=== PATIENT | female | born 1985 | race Caucasian/White ===

== ENCOUNTER 2016-11-06 21:02 | Emergency (ER) | payer BC ==
[~2016-11-06] VITALS: Ht 160 cm; Wt 62.5 kg
[~2016-11-06 21:02] MED LIST: OMEP20CA16 PO
[2016-11-06 21:17] VITALS: Ht 160 cm; Wt 62.5 kg
[2016-11-06] MEDS ORDERED: AMO500 PO (21:30)
[2016-11-06] MEDS ORDERED: CIPR7.5D4 BOTH EARS (21:30)
[2016-11-06] MEDS ORDERED: IBUP-1542 PO (21:31)
--- NOTE | 2016-11-06 21:42 | ERD ---
ER Documentation Chief Complaint Date/Time DATE: 11/06/16 TIME: 21:38 Chief Complaint Pt with L ear pain X 2 weeks, white discharge per pt. HPI Patient is a 31-year-old female who presents with left ear pain 2 weeks. Patient states that she has white discharge coming from her ear. Patient denies any active bleeding. Patient states that she was prescribed Cipro Dex eardrops from her primary care physician 3 days ago. Patient has been using this medication with no relief of symptoms. She denies any Q-tip use. Patient denies any water activities. Patient denies any fevers, chills, nausea, vomiting, cough, rhinorrhea, abdominal pain, loss of consciousness. Patient denies any sick contacts. No recent travel. ROS All systems reviewed and are negative except as per history of present illness. Medications Home Meds Active Scripts Ibuprofen* (Motrin*) 600 Mg Tab, 600 MG PO Q6, #30 TAB Prov:KEARA HOLMAN PA-C 11/06/16 Amoxicillin* (Amoxicillin*) 500 Mg Cap, 500 MG PO BID for 10 Days, CAP Prov:KEARA HOLMAN PA-C 11/06/16 Ciprofloxacin Hcl/Dexameth (Ciprodex Otic Suspension) 7.5 Ml Drops.susp, 4 DROP BOTH EARS BID for 7 Days, EA Prov:KEARA HOLMAN PA-C 11/06/16 Reported Medications Omeprazole* (Omeprazole*) 20 Mg Capsule.dr, 20 MG PO DAILY, #30 CAP 11/26/15 Allergies Allergies: Coded Allergies: No Known Drug Allergy (Verified Allergy, Unknown, 11/26/15) PMhx/Soc History of Surgery: Yes (erika kathleen 2013) Anesthesia Reaction: No Hx Neurological Disorder: No Hx Respiratory Disorders: No Hx Cardiac Disorders: No Hx Psychiatric Problems: No Hx Miscellaneous Medical Probl: No Hx Alcohol Use: No Hx Substance Use: No Hx Tobacco Use: No FmHx Family History: No diabetes Physical Exam Vitals Vital Signs Date Time Temp Pulse Resp B/P Pulse Ox O2 Delivery O2 Flow Rate FiO2 11/06/16 21:17 98.0 62 18 144/78 100 Physical Exam GENERAL: Well-developed, well-nourished female. Appears in no acute distress. HEAD: Normocephalic, atraumatic. No deformities or ecchymosis. EYE: Pupils equal, round, and reactive to light. EOMs intact. No conjunctival erythema. No eye discharge. ENT: External ear without any masses or tenderness. Left auditory canal swollen , difficulty with visualizing tympanic membrane. Right auditory canal non- erythematous. TM appears normal. Nasal mucosa pink with no discharge. Oropharynx is pink without any tonsillar erythema or exudates. No uvula deviation. No kissing tonsils. Tender to palpation of bilateral mastoid processes. No trismus. NECK: Supple. No meningismus. Normal ROM of the neck. LUNG: Clear to auscultation bilaterally. No rhonchi, wheezing, rales or coarse breath sounds. HEART: Regular rate and rhythm. No murmurs, rubs or gallops. BACK: No midline tenderness. EXTREMITES: Equal pulses bilaterally. No peripheral clubbing, cyanosis or edema. No unilateral leg swelling. NEUROLOGIC: Alert and oriented to person, place and time. Moving all four extremities. 5/5 strength in all extremities. Normal speech. Steady gait. SKIN: Normal color. Warm and dry. No rashes or lesions. Procedures/MDM MEDICAL DECISION MAKING: This is a 31-year-old female who presents with left ear pain 2 weeks. Vital signs were reviewed. Patient was afebrile. Patient was not hypoxic. Ear exam revealed left auditory canal swelling difficulty in visualizing the tympanic membrane. Given these findings, the patient's presentation is most consistent with otitis externa. Able to rule out acute otitis media at this time. I have a much lower clinical suspicion for tympanic membrane perforation, mastoiditis, otic barotrauma, TMJ dysfunction, tooth abscess, tooth pain, strep pharyngitis. PRESCRIPTIONS: Ciprodex eardrops, ibuprofen, amoxicillin DISCHARGE: At this time, patient is stable for discharge and outpatient management. I have instructed the patient to follow-up with his/her primary care physician in 1-2 days. I have discussed with the patient the possibility of needing to see a ENT specialist for further workup and diagnostic studies if the pain persists. I have instructed the patient to promptly return to the ER at any time for any new or worsening symptoms including increased pain, fever, swelling, discharge or hearing loss. The patient and/or family expressed understanding of and agreement with this plan. All questions were answered. Home care instructions were provided. Departure Diagnosis: Primary Impression: Acute otitis externa Otitis externa type: unspecified type Laterality: left Qualified Code: H60.502 - Acute otitis externa of left ear, unspecified type Additional Impression: Otitis media Otitis media type: unspecified Laterality: unspecified laterality Chronicity: unspecified Qualified Code: H66.90 - Otitis media, unspecified chronicity, unspecified laterality, unspecified otitis media type Condition: Stable Patient Instructions: Otitis Media, Abx Tx (Adult) Referrals: [facility] Additional Instructions: Call your primary care doctor TOMORROW for an appointment during the next 1-2 days.See the doctor sooner or return here if your condition worsens before your appointment time. KEARA HOLMAN PA-C Nov 06, 2016 21:41
== END 2016-11-06 21:42 | disposition home or self-care (01) ==
LOC: E/R 21:02
DX: H60.502 Unspecified acute noninfective otitis externa, left ear (principal); H66.92 Otitis media, unspecified, left ear
CPT/HCPCS: 99283

== ENCOUNTER 2017-09-30 06:06 | Day surgery (SDC) | END 2017-09-30 12:15 | disposition home or self-care (01) ==